=== PATIENT | male | born 1995 ===

== ENCOUNTER 2024-06-27 14:42 | Outpatient (REF) | payer OTHER, SELFPAY ==
--- NOTE | ~2024-06-27 | XR_ITS ---
EXAMINATION: XR LUMBOSACRAL SPINE CLINICAL INFORMATION: Low back pain. COMPARISON: None available. TECHNIQUE: Three views of the lumbosacral spine. FINDINGS: There are 5 lumbar-type nonrib-bearing vertebrae. There is partial lumbarization of S1. Intervertebral disc spaces are preserved. Mild facet arthropathy is noted at L5-S1. The posterior elements appear intact. Acmkznsp-iq-nrhdt stool burden is noted in the visualized colon. No suspicious lytic or blastic osseous lesions are seen. XR/XR lumbar spine 2-3V IMPRESSION: No evidence of acute compression fracture or suspicious osseous lesions. Mild facet arthropathy at L5-S1. Electronically signed by: Lakshmi Miramontes MD 07/18/2024 05:23 PM EDT
== END 2024-06-27 14:43 | disposition home or self-care (01) ==
LOC: HO.HMGCX 14:42
PROVIDERS: PCP Internal Medicine; Visit Provider Internal Medicine
DX: M54.50 Low back pain, unspecified (principal)
CPT/HCPCS: 72100

== ENCOUNTER 2024-07-07 15:50 | Outpatient (REF) | payer OTHER, SELFPAY ==
[2024-07-07 16:09] LABS: MANUAL DIFF FLAG NO
[2024-07-07 17:45] LABS: Basophils Absolute Auto 0.1 X10*3/uL (0.0-0.2); Basophils Percent Auto 1.4 % (0-2); Eosinophils Absolute Auto 0.2 X10*3/uL (0.0-0.4); Eosinophils Percent Auto 2.4 % (0-4); Hematocrit 43.3 % (42.0-52.0); Hemoglobin 15.2 g/dl (14.0-18.0); Imm Gran Abs Auto 0.02 X10*3/uL (0.00-0.03); Imm Gran Pct Auto 0.2 % (0.0-0.4); Lymphocytes Absolute Auto 2.7 X10*3/uL (1.2-4.9); Lymphocytes Percent Auto 30.2 % (20-40); Mean Corpuscular HGB Conc 35.1 g/dl (31.0-36.0); Mean Corpuscular Hemoglobin 30.3 pg (27.0-33.0); Mean Corpuscular Volume 86.3 fL (80.0-98.0); Mean Platelet Volume 9.8 fL (9.4-12.4); Monocytes Absolute Auto 0.7 X10*3/uL (0.1-1.2); Monocytes Percent Auto 7.2 % (2-11); Neutrophils Absolute Auto 5.3 x10*3/uL (2.0-8.3); Neutrophils Percent Auto 58.6 % (45-73); Platelet Count 391 X10*3/uL (160-400); Red Blood Count 5.02 X10*6/uL (4.60-5.80); White Blood Count 9.1 X10*3/uL (4.8-10.8)
== END 2024-07-07 15:51 | disposition home or self-care (01) ==
LOC: HO.LAB 15:50
PROVIDERS: PCP Internal Medicine; Visit Provider Internal Medicine
DX: R53.83 Other fatigue (principal)
CPT/HCPCS: 36415; 85025

== ENCOUNTER 2024-07-08 13:58 | Outpatient (AMB) | payer OTHER, SELFPAY ==
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
[2024-07-08 14:17] VITALS: BP 126/80; PULSE 106; O2SAT 95; BMI 28.2
== END 2024-07-08 14:41 | disposition home or self-care (01) ==
PROVIDERS: PCP Internal Medicine; Visit Provider Nurse Practitioner Family
DX: K62.5 Hemorrhage of anus and rectum (principal); K59.03 Drug induced constipation
CPT/HCPCS: 99204

== ENCOUNTER → 2024-07-08 13:58 | Outpatient (BNVA) | payer OTHER, SELFPAY | PROVIDERS: PCP Internal Medicine; Visit Provider Nurse Practitioner Family | DX: K62.5 Hemorrhage of anus and rectum (principal); K59.03 Drug induced constipation; S81.841A Puncture wound with foreign body, right lower leg, initial encounter; W34.00XA Accidental discharge from unspecified firearms or gun, initial encounter; Y93.9 Activity, unspecified; Y92.9 Unspecified place or not applicable; Y99.9 Unspecified external cause status | CPT/HCPCS: 99202 ==